=== PATIENT | female | born 1970 | race Caucasian/White ===

== ENCOUNTER → 2023-12-08 13:45 | Outpatient (REF) | payer BC, SELFPAY | LOC: REG 13:45 | PROVIDERS: ATTENDING PHYSICIAN Registered Nurse | DX: Z36.85 Encounter for antenatal screening for Streptococcus B (principal) | CPT/HCPCS: 87070; 87880 ==

== ENCOUNTER → 2024-08-13 07:18 | Outpatient (REF) | payer BC, SELFPAY | LOC: HWRCS 07:18 | PROVIDERS: ATTENDING PHYSICIAN Internal Medicine Cardiovascular Disease; FAMILY PHYSICIAN Internal Medicine | DX: R60.0 Localized edema (principal); Z82.49 Family history of ischemic heart disease and other diseases of the circulatory system; E78.9 Disorder of lipoprotein metabolism, unspecified | CPT/HCPCS: 93306 ==

== ENCOUNTER → 2024-08-22 10:33 | Outpatient (REF) | payer BC, SELFPAY | LOC: RAD 10:33 | PROVIDERS: ATTENDING PHYSICIAN Physician Assistant; FAMILY PHYSICIAN Physician Assistant | DX: M25.531 Pain in right wrist (principal) | CPT/HCPCS: 73110 ==

== ENCOUNTER → 2024-09-01 09:38 | Outpatient (REF) | payer BC, SELFPAY ==
[2024-09-01 11:10] LABS: % Basophils 0.3 % (0-2); % Eosinophils 2.1 % (0-6); % Immature Granulocytes 0.3 % (0-0.5); % Lymphocytes 22.8 % (20.5-51.1); % Monocytes 5.8 % (1.7-9.3); % Neutrophils 68.7 % (42.2-75.2); Absolute Eosinophils 0.2 10^3/uL (0-0.7); Absolute Lymphocytes 1.8 10^3/uL (1.2-3.4); Absolute Monocytes 0.5 10^3/uL (0.1-0.6); Absolute Neutrophils 5.4 10^3/uL (1.4-6.5); Hematocrit 38.8 % (37.0-47.0); Mean Corp Hgb Conc. 33.5 g/dL (33.0-37.0); Mean Corpuscular Hgb 28.6 pg (27.0-31.0); Mean Corpuscular Volume 85.3 fL (81.0-99.0); Mean Platelet Volume 10.3 fL (7.4-10.4); Nucleated Red Blood Cells % 0 %; Platelet Count 249 10^3/uL (130-400); Red Blood Cell Count 4.55 10^6/uL (4.20-5.40); Red Cell Dist. Width 14.6 % (11.5-14.5); White Blood Cell Count 7.8 10^3/uL (4.8-10.8)
[2024-09-01 11:21] LABS: ALT (SGPT) 24 U/L (0-35); AST (SGOT) 23 U/L (14-36); Albumin 4.2 g/dl (3.5-5.0); Alkaline Phosphatase 114 U/L (38-126); Blood Urea Nitrogen 23 mg/dl (7-17); Calcium 9.6 mg/dl (8.4-10.2); Carbon Dioxide 21 mmol/L (22-30); Chloride 108 mmol/L (98-107); Glucose 101 mg/dl (70-99); HDL Cholesterol 57 mg/dl; LDL Cholesterol, Calculated 123 mg/dl; Potassium 4.3 mmol/L (3.5-5.1); Sodium 139 mmol/L (135-145); Total Bilirubin 0.7 mg/dl (0.2-1.3); Total Cholesterol 205 mg/dl (50-199); Total Protein 7.3 g/dl (6.3-8.2); Triglyceride 129 mg/dl (10-149); Very Low Density Lipoprotein 25 mg/dl (0-30); eGFR > 60.00
[2024-09-01 11:48] LABS: TSH Reflex To Free T4 1.65 uIU/ml (0.47-4.68)
== END ==
LOC: REG 09:38
PROVIDERS: ATTENDING PHYSICIAN Physician Assistant; REFERRING PHYSICIAN Internal Medicine Cardiovascular Disease
DX: E66.01 Morbid (severe) obesity due to excess calories (principal); R03.0 Elevated blood-pressure reading, without diagnosis of hypertension; Z13.220 Encounter for screening for lipoid disorders
CPT/HCPCS: 36415; 80053; 80061; 83695; 84443; 85025